=== PATIENT | female | born 1940 | race Asian ===

== ENCOUNTER 2019-04-26 16:05 | Emergency (ER) | payer MEDICAID ==
[~2019-04-26] VITALS: Ht 162.6 cm; Wt 63.6 kg
[~2019-04-26 16:05] MED LIST: CALC1TAB15 PO; CHOL100018 PO; FERR-89 PO; LISI1TAB11 PO; MULT-1203 PO
[2019-04-26] MEDS ORDERED: ASPI81TA39 PO (16:48)
[2019-04-26 17:39] LABS: GLUCOSE,POINT OF CARE 148 MG/DL (70-110)
[2019-04-26 19:01] VITALS: BP 129/64
== END 2019-04-26 19:25 | disposition home or self-care (01) ==
LOC: EMS 16:06
DX: R53.83 Other fatigue (principal); R55 Syncope and collapse; I10 Essential (primary) hypertension; Z79.82 Long term (current) use of aspirin
CPT/HCPCS: 82948; 93005

== ENCOUNTER 2022-04-07 10:17 | Emergency (ER) | payer MEDICARE, MEDICAID ==
[~2022-04-07] VITALS: Ht 144.8 cm; Wt 51.1 kg
[~2022-04-07 10:17] MED LIST changes: +ASPI81TA39 PO; -FERR-89 PO; +FERR325T27 PO
[2022-04-07] MEDS ORDERED: ATOR20TA86 PO (10:24)
[2022-04-07] MEDS ORDERED: METO25 PO (10:24)
[2022-04-07] MEDS ORDERED: ALEN70TA65 PO (10:24)
[2022-04-07 11:18] LABS: BASOPHILS % (AUTO) 0.4 % (0.0-2.0); EOSINOPHILS % (AUTO) 0.1 % (1.0-6.0); HEMATOCRIT 45.4 % (36-46); HEMOGLOBIN 15.3 g/dL (12.0-16.0); LYMPHOCYTES # (AUTO) 1.1 K/uL (1.0-4.8); LYMPHOCYTES % (AUTO) 11.5 % (22.0-44.0); MEAN CORPUSCULAR HEMOGLOBIN 29.8 pg (26.0-34.0); MEAN CORPUSCULAR HGB CONC 33.7 G/dL (31.0-37.0); MEAN CORPUSCULAR VOLUME 88 fL (80-100); MONOCYTES # (AUTO) 0.7 K/uL (0.1-1.0); MONOCYTES % (AUTO) 7.4 % (2.0-9.0); NEUTROPHILS # (AUTO) 7.7 K/uL (1.8-7.7); NEUTROPHILS % (AUTO) 80.6 % (40.0-70.0); PLATELET COUNT (AUTO) 203 K/uL (150-450); RED BLOOD CELL COUNT(AUTO) 5.14 MIL/uL (4.00-5.20); RED CELL DISTRIBUTION WIDTH 12.1 % (11.5-14.5)
[2022-04-07 11:46] LABS: CALCIUM, TOTAL 9.6 mg/dL (8.8-10.5); CREATININE 1.09 mg/dL (0.60-1.30)
[2022-04-07 11:52] LABS: POTASSIUM 2.9 mmol/L (3.5-5.1)
[2022-04-07] MEDS ORDERED: IOHEXOL 350 MG/ML 100 ML VIAL ONE (12:00)
[2022-04-07] MEDS ORDERED: POTASSIUM CHLORIDE 20 MEQ ER TABLET PO ONE (12:00)
[2022-04-07 13:45] LABS: COVID AG,FIA SOURCE NASAL SWAB
[2022-04-07] MEDS ORDERED: METOPROLOL TARTRATE 5 MG/5 ML VIAL IVP ONE ×4 (14:15→15:30)
[2022-04-07] MEDS ORDERED: LABETALOL HCL 5 MG/ML 20 ML VIAL IVP ONE (15:45)
[2022-04-07] MEDS ORDERED: NiCARDipine HCL 25 MG in SODIUM CHLORIDE 0.9% 240 ML IV PRN (15:45)
[2022-04-07 18:02] VITALS: BP 141/80
== END 2022-04-07 18:15 | disposition short-term general hospital (02) ==
LOC: EMS 10:31
DX: I67.1 Cerebral aneurysm, nonruptured (principal); I10 Essential (primary) hypertension; H49.02 Third [oculomotor] nerve palsy, left eye; Z20.822 Contact with and (suspected) exposure to COVID-19
CPT/HCPCS: 99291; 96365; 70496; 96375; 87426; 80048; 85025; 36415; 93005; J3490 ×2; Q9967; J7050

== ENCOUNTER 2022-05-18 12:33 | Inpatient (IN) | payer MEDICARE, MEDICAID ==
[2022-05-18] VITALS (16 sets, daily range): BP systolic 86–120; BP diastolic 45–68
[~2022-05-18] VITALS: Ht 154.9 cm; Wt 57.9 kg
[~2022-05-18 12:33] MED LIST changes: +ALEN70TA65 PO; -ASPI81TA39 PO; +ATOR20TA86 PO; -FERR325T27 PO; +METO25 PO
[2022-05-18] MEDS ORDERED: 0.9% SODIUM CHLORIDE 10 ML SYRINGE IVP PRN ×2 (13:00→15:30)
[2022-05-18] MEDS ORDERED: SODIUM CHLORIDE 0.9% 1,500 ML IV ONE (13:15)
[2022-05-18 13:32] LABS: BASOPHILS % (AUTO) 0.2 % (0.0-2.0); EOSINOPHILS % (AUTO) 0 % (1.0-6.0); LYMPHOCYTES # (AUTO) 1.1 K/uL (1.0-4.8); LYMPHOCYTES % (AUTO) 7.3 % (22.0-44.0); MEAN CORPUSCULAR HEMOGLOBIN 30.3 pg (26.0-34.0); MEAN CORPUSCULAR HGB CONC 31.2 G/dL (31.0-37.0); MEAN CORPUSCULAR VOLUME 97 fL (80-100); MONOCYTES # (AUTO) 0.5 K/uL (0.1-1.0); MONOCYTES % (AUTO) 3.5 % (2.0-9.0); PLATELET COUNT (AUTO) 245 K/uL (150-450); RED BLOOD CELL COUNT(AUTO) 1.59 MIL/uL (4.00-5.20); RED CELL DISTRIBUTION WIDTH 16.3 % (11.5-14.5)
[2022-05-18 13:39] LABS: ANION GAP 11 mmol/L (8-16); CALCIUM, TOTAL 9.2 mg/dL (8.8-10.5); CARBON DIOXIDE 25 mmol/L (22-29); CHLORIDE 104 mmol/L (98-107); CREATININE 2.08 mg/dL (0.60-1.30); GLOMERULAR FILTR. RATE CALC 23 mL/min (>60); GLUCOSE,RANDOM 137 mg/dL (70-110); POTASSIUM 4.5 mmol/L (3.5-5.1); SODIUM SERUM 140 mmol/L (136-145); UREA NITROGEN, BLOOD 45 mg/dL (7-18)
[2022-05-18 13:40] LABS: HEMOGLOBIN 4.8 g/dL (12.0-16.0)
[2022-05-18 13:41] LABS: HEMATOCRIT 15.5 % (36-46)
[2022-05-18 13:45] LABS: ALANINE AMINOTRANSFERASE 13 U/L (12-78); ALBUMIN 1.7 g/dL (3.4-5.0); ALKALINE PHOSPHATASE 62 U/L (46-116); ASPARTATE AMINOTRANSFERASE 18 U/L (15-37); BILIRUBIN,TOTAL 0.2 mg/dL (0.1-1.0); CREATINE KINASE, TOTAL ONLY 20 U/L (26-192); TOTAL PROTEIN, SERUM 4.9 g/dL (6.4-8.2)
[2022-05-18] MEDS ORDERED: ASPI-989 PO (13:54)
[2022-05-18] MEDS ORDERED: CLOP75TA60 PO (13:54)
[2022-05-18 13:57] LABS: B-TYPE NATRIURETIC PEPTIDE 72 pg/mL (0-100)
[2022-05-18 13:59] LABS: D-DIMER 7.86 mg/L FEU (0.00-0.50); INR 1.1 (0.9-1.1); PROTHROMBIN TIME 11.3 SEC (9.4-11.6)
[2022-05-18 14:36] LABS: COVID AG,FIA SOURCE NASAL SWAB
[2022-05-18] MEDS ORDERED: AZITHROMYCIN 500 MG/NS 250 ML IV ONE (14:45)
[2022-05-18] MEDS ORDERED: CefTRIAXone 1 GM/DEXTROSE 50 ML IV ONE (14:45)
[2022-05-18] MEDS ORDERED: PANTOPRAZOLE SODIUM 40 MG/VIAL IVP ONE (15:15)
[2022-05-18] MEDS: SODIUM CHLORIDE 0.9% 1,000 ML IV SCH (15:15)
[2022-05-18 15:25] LABS: INFLUENZA TYPE A NEGATIVE FOR TYPE A (NEGATIVE); INFLUENZA TYPE B NEGATIVE FOR TYPE B (NEGATIVE)
[2022-05-18] MEDS ORDERED: IPRATROPIUM BROMIDE 0.5 MG/2.5 ML NEB SOLUTION NEB PRN (15:30)
[2022-05-18] MEDS ORDERED: ALBUTEROL SULFATE 2.5 MG/0.5 ML NEB SOLUTION NEB PRN (15:30)
[2022-05-18] MEDS ORDERED: ONDANSETRON HCL 4 MG/2 ML VIAL IVP PRN (15:30)
[2022-05-18] MEDS ORDERED: PANTOPRAZOLE SODIUM 80 MG in SODIUM CHLORIDE 0.9% 100 ML IV SCH (15:30)
[2022-05-18] MEDS ORDERED: ACETAMINOPHEN 325 MG TABLET PO PRN (15:30)
[2022-05-18] MEDS: DOXYCYCLINE HYCLATE 100 MG in DEXTROSE 5%-WATER 100 ML IV SCH (18:15)
[2022-05-18] MEDS ORDERED: ALEN70TA65 PO (18:19)
[2022-05-18 18:20] LABS: APPEARANCE,URINE CLEAR (CLEAR); BILIRUBIN,URINE NEGATIVE (NEGATIVE); GLUCOSE, URINE (UA) NEGATIVE (NEGATIVE); KETONES,URINE TRACE mg/dL (NEGATIVE); LEUKOCYTE ESTERASE ,URINE NEGATIVE (NEGATIVE); NITRATE,URINE POSITIVE (NEGATIVE); OCCULT BLOOD,URINE NEGATIVE (NEGATIVE); PROTEIN,URINE NEGATIVE (NEGATIVE); SPECIFIC GRAVITIY, URINE 1.014 (1.003-1.030); UROBILINOGEN,URINE <=1.0 mg/dL (<=1.0)
[2022-05-18 18:37] LABS: BACTERIA,URINE Few /HPF (None Seen); RBC,URINE None Seen /HPF (0-2); SQUAMOUS EPITHELIAL CELL,UR Few /LPF (None Seen)
[2022-05-18 19:26] LABS: HEMATOCRIT 17.6 % (36-46); HEMOGLOBIN 5.5 g/dL (12.0-16.0)
[2022-05-18] MEDS: ATORVASTATIN CALCIUM 20 MG TABLET PO SCH (21:19)
[2022-05-19 00:05] VITALS: BP 102/58
[2022-05-19 00:35] VITALS: BP 120/58
[2022-05-19 01:05] VITALS: BP 125/70
[2022-05-19 01:08] LABS: HEMATOCRIT 24.2 % (36-46)
[2022-05-19] MEDS: DOXYCYCLINE HYCLATE 100 MG in DEXTROSE 5%-WATER 100 ML IV SCH ×2 (05:33→20:33)
[2022-05-19] MEDS: PANTOPRAZOLE SODIUM 80 MG in SODIUM CHLORIDE 0.9% 100 ML IV SCH (05:47)
[2022-05-19 07:01] LABS: BASOPHILS % (AUTO) 0.4 % (0.0-2.0); EOSINOPHILS % (AUTO) 1.1 % (1.0-6.0); HEMATOCRIT 25.5 % (36-46); HEMOGLOBIN 8.6 g/dL (12.0-16.0); LYMPHOCYTES # (AUTO) 2.1 K/uL (1.0-4.8); LYMPHOCYTES % (AUTO) 16.7 % (22.0-44.0); MEAN CORPUSCULAR HEMOGLOBIN 29.9 pg (26.0-34.0); MEAN CORPUSCULAR HGB CONC 33.6 G/dL (31.0-37.0); MEAN CORPUSCULAR VOLUME 89 fL (80-100); MONOCYTES # (AUTO) 0.7 K/uL (0.1-1.0); MONOCYTES % (AUTO) 5.5 % (2.0-9.0); NEUTROPHILS # (AUTO) 9.7 K/uL (1.8-7.7); NEUTROPHILS % (AUTO) 76.3 % (40.0-70.0); PLATELET COUNT (AUTO) 182 K/uL (150-450); RED BLOOD CELL COUNT(AUTO) 2.86 MIL/uL (4.00-5.20); RED CELL DISTRIBUTION WIDTH 15.5 % (11.5-14.5)
[2022-05-19] MEDS: MetroNIDAZOLE 500 MG/NACL 100 ML IV SCH ×3 (07:21→22:00)
[2022-05-19 07:22] LABS: ALBUMIN 1.6 g/dL (3.4-5.0); BILIRUBIN,TOTAL 0.6 mg/dL (0.1-1.0); CALCIUM, TOTAL 8.3 mg/dL (8.8-10.5); CREATININE 1.6 mg/dL (0.60-1.30); POTASSIUM 3.6 mmol/L (3.5-5.1); TOTAL PROTEIN, SERUM 4.8 g/dL (6.4-8.2)
[2022-05-19] MEDS: SODIUM CHLORIDE 0.9% 1,000 ML IV SCH ×2 (08:22→22:18)
[2022-05-19] MEDS: MULTIVITAMINS, THERAPEUTIC TABLET PO SCH (09:00)
[2022-05-19] MEDS: CHOLECALCIFEROL (VIT D3) 1,000 UNITS [25 MCG] TABLET PO SCH (09:00)
[2022-05-19] MEDS ORDERED: CALC-462 PO (11:00)
[2022-05-19] MEDS ORDERED: LISI20TA24 PO (11:00)
[2022-05-19] MEDS ORDERED: CHOL25TA4 PO (11:00)
[2022-05-19 11:05] VITALS: BP 137/66
[2022-05-19 11:38] LABS: HEMATOCRIT 29.2 % (36-46); HEMOGLOBIN 9.7 g/dL (12.0-16.0)
[2022-05-19] MEDS ORDERED: PROPOFOL 1% 20 ML VIAL IVP ONE (12:50)
[2022-05-19] MEDS ORDERED: LIDOCAINE/PF 2% 5 ML VIAL IM ONE (12:50)
[2022-05-19 13:39] LABS: HEMATOCRIT 27.5 % (36-46); HEMOGLOBIN 8.8 g/dL (12.0-16.0)
[2022-05-19 15:53] VITALS: BP 129/63
[2022-05-19] MEDS ORDERED: SODIUM CHLORIDE 0.9% 250 ML IV ONE (16:11)
[2022-05-19] MEDS: CefTRIAXone 1 GM/DEXTROSE 50 ML IV SCH (18:35)
[2022-05-19 18:44] LABS: BASOPHILS % (AUTO) 0.6 % (0.0-2.0); EOSINOPHILS % (AUTO) 1.9 % (1.0-6.0); HEMATOCRIT 30.2 % (36-46); HEMOGLOBIN 9.7 g/dL (12.0-16.0); LYMPHOCYTES # (AUTO) 1.8 K/uL (1.0-4.8); LYMPHOCYTES % (AUTO) 15.1 % (22.0-44.0); MEAN CORPUSCULAR HEMOGLOBIN 29.4 pg (26.0-34.0); MEAN CORPUSCULAR HGB CONC 32.2 G/dL (31.0-37.0); MEAN CORPUSCULAR VOLUME 92 fL (80-100); MONOCYTES # (AUTO) 0.5 K/uL (0.1-1.0); MONOCYTES % (AUTO) 4.4 % (2.0-9.0); NEUTROPHILS # (AUTO) 9.5 K/uL (1.8-7.7); PLATELET COUNT (AUTO) 191 K/uL (150-450); RED CELL DISTRIBUTION WIDTH 15.8 % (11.5-14.5)
[2022-05-19 20:22] VITALS: BP 137/67
[2022-05-19] MEDS: ATORVASTATIN CALCIUM 20 MG TABLET PO SCH (20:33)
[2022-05-20] VITALS (7 sets, daily range): BP systolic 116–138; BP diastolic 58–68
[2022-05-20] MEDS: PANTOPRAZOLE SODIUM 80 MG in SODIUM CHLORIDE 0.9% 100 ML IV SCH (01:00)
[2022-05-20 02:45] LABS: HEMATOCRIT 27.3 % (36-46); HEMOGLOBIN 9.1 g/dL (12.0-16.0)
[2022-05-20] MEDS ORDERED: ALENDRONATE SODIUM 70 MG TABLET PO SCH (06:30)
[2022-05-20] MEDS: MetroNIDAZOLE 500 MG/NACL 100 ML IV SCH ×2 (08:40→16:08)
[2022-05-20] MEDS: DOXYCYCLINE HYCLATE 100 MG in DEXTROSE 5%-WATER 100 ML IV SCH ×2 (08:41→20:08)
[2022-05-20] MEDS: CHOLECALCIFEROL (VIT D3) 1,000 UNITS [25 MCG] TABLET PO SCH (08:41)
[2022-05-20] MEDS: MULTIVITAMINS, THERAPEUTIC TABLET PO SCH (08:41)
[2022-05-20 09:10] LABS: HEMATOCRIT 26.6 % (36-46); HEMOGLOBIN 8.8 g/dL (12.0-16.0)
[2022-05-20] MEDS: PANTOPRAZOLE SODIUM 40 MG DR TABLET PO SCH ×2 (09:16→20:08)
[2022-05-20] MEDS: SODIUM CHLORIDE 0.9% 1,000 ML IV SCH (12:36)
[2022-05-20 13:24] LABS: HEMATOCRIT 28.4 % (36-46); HEMOGLOBIN 9.4 g/dL (12.0-16.0)
[2022-05-20] MEDS: CefTRIAXone 1 GM/DEXTROSE 50 ML IV SCH (15:37)
[2022-05-20 16:08] LABS: HEMATOCRIT 26.4 % (36-46); HEMOGLOBIN 8.8 g/dL (12.0-16.0)
[2022-05-20 19:05] LABS: HEMATOCRIT 27.7 % (36-46); HEMOGLOBIN 9.2 g/dL (12.0-16.0)
[2022-05-20] MEDS: ATORVASTATIN CALCIUM 20 MG TABLET PO SCH (20:08)
[2022-05-20 23:23] LABS: HEMATOCRIT 25.7 % (36-46); HEMOGLOBIN 8.5 g/dL (12.0-16.0)
[2022-05-21] MEDS: MetroNIDAZOLE 500 MG/NACL 100 ML IV SCH ×4 (01:04→23:54)
[2022-05-21 01:33] VITALS: BP 132/66
[2022-05-21] MEDS: SODIUM CHLORIDE 0.9% 1,000 ML IV SCH ×2 (04:18→18:11)
[2022-05-21 05:14] VITALS: BP 137/64
[2022-05-21 07:07] LABS: BASOPHILS % (AUTO) 0.4 % (0.0-2.0); EOSINOPHILS % (AUTO) 4.5 % (1.0-6.0); HEMATOCRIT 24.1 % (36-46); HEMOGLOBIN 8.2 g/dL (12.0-16.0); LYMPHOCYTES # (AUTO) 1.5 K/uL (1.0-4.8); LYMPHOCYTES % (AUTO) 16.3 % (22.0-44.0); MEAN CORPUSCULAR HEMOGLOBIN 30.6 pg (26.0-34.0); MEAN CORPUSCULAR HGB CONC 34.3 G/dL (31.0-37.0); MEAN CORPUSCULAR VOLUME 89 fL (80-100); MONOCYTES # (AUTO) 0.6 K/uL (0.1-1.0); MONOCYTES % (AUTO) 6.1 % (2.0-9.0); NEUTROPHILS # (AUTO) 6.7 K/uL (1.8-7.7); NEUTROPHILS % (AUTO) 72.7 % (40.0-70.0); PLATELET COUNT (AUTO) 173 K/uL (150-450); RED CELL DISTRIBUTION WIDTH 15.7 % (11.5-14.5)
[2022-05-21 07:11] LABS: CALCIUM, TOTAL 7.2 mg/dL (8.8-10.5); CREATININE 1.25 mg/dL (0.60-1.30); POTASSIUM 3.1 mmol/L (3.5-5.1)
[2022-05-21 07:17] VITALS: BP 130/61
[2022-05-21] MEDS: MULTIVITAMINS, THERAPEUTIC TABLET PO SCH (09:07)
[2022-05-21] MEDS: DOXYCYCLINE HYCLATE 100 MG in DEXTROSE 5%-WATER 100 ML IV SCH ×2 (09:08→21:25)
[2022-05-21] MEDS: CHOLECALCIFEROL (VIT D3) 1,000 UNITS [25 MCG] TABLET PO SCH (09:08)
[2022-05-21] MEDS: PANTOPRAZOLE SODIUM 40 MG DR TABLET PO SCH ×2 (09:08→21:24)
[2022-05-21 11:22] VITALS: BP 117/62
[2022-05-21 15:33] VITALS: BP 121/66
[2022-05-21] MEDS: CefTRIAXone 1 GM/DEXTROSE 50 ML IV SCH (15:51)
[2022-05-21] MEDS ORDERED: POTASSIUM CHLORIDE 20 MEQ ER TABLET PO ONE (19:45)
[2022-05-21 19:51] VITALS: BP 142/72
[2022-05-21] MEDS: ATORVASTATIN CALCIUM 20 MG TABLET PO SCH (21:24)
[2022-05-22 00:24] VITALS: BP 122/65
[2022-05-22 04:59] VITALS: BP 139/73
[2022-05-22] MEDS: SODIUM CHLORIDE 0.9% 1,000 ML IV SCH ×2 (06:31→21:04)
[2022-05-22 07:23] LABS: BASOPHILS % (AUTO) 0.3 % (0.0-2.0); EOSINOPHILS % (AUTO) 3.9 % (1.0-6.0); HEMOGLOBIN 8.9 g/dL (12.0-16.0); LYMPHOCYTES # (AUTO) 1.5 K/uL (1.0-4.8); LYMPHOCYTES % (AUTO) 14.6 % (22.0-44.0); MEAN CORPUSCULAR HEMOGLOBIN 30.8 pg (26.0-34.0); MEAN CORPUSCULAR HGB CONC 34.3 G/dL (31.0-37.0); MEAN CORPUSCULAR VOLUME 90 fL (80-100); MONOCYTES # (AUTO) 0.8 K/uL (0.1-1.0); MONOCYTES % (AUTO) 7.9 % (2.0-9.0); NEUTROPHILS # (AUTO) 7.4 K/uL (1.8-7.7); NEUTROPHILS % (AUTO) 73.3 % (40.0-70.0); PLATELET COUNT (AUTO) 172 K/uL (150-450); RED CELL DISTRIBUTION WIDTH 16.4 % (11.5-14.5)
[2022-05-22 07:39] LABS: ALBUMIN 1.5 g/dL (3.4-5.0); BILIRUBIN,TOTAL 0.4 mg/dL (0.1-1.0); CALCIUM, TOTAL 6.9 mg/dL (8.8-10.5); CREATININE 1.14 mg/dL (0.60-1.30); POTASSIUM 3.3 mmol/L (3.5-5.1); TOTAL PROTEIN, SERUM 4.3 g/dL (6.4-8.2)
[2022-05-22 07:49] VITALS: BP 116/59
[2022-05-22] MEDS: MetroNIDAZOLE 500 MG/NACL 100 ML IV SCH ×3 (08:25→23:49)
[2022-05-22] MEDS: CHOLECALCIFEROL (VIT D3) 1,000 UNITS [25 MCG] TABLET PO SCH (08:26)
[2022-05-22] MEDS: DOXYCYCLINE HYCLATE 100 MG in DEXTROSE 5%-WATER 100 ML IV SCH ×2 (08:26→19:54)
[2022-05-22] MEDS: MULTIVITAMINS, THERAPEUTIC TABLET PO SCH (08:26)
[2022-05-22] MEDS: PANTOPRAZOLE SODIUM 40 MG DR TABLET PO SCH ×2 (08:26→20:03)
[2022-05-22 11:30] VITALS: BP 152/67
[2022-05-22 15:14] VITALS: BP 105/59
[2022-05-22] MEDS: CefTRIAXone 1 GM/DEXTROSE 50 ML IV SCH (15:20)
[2022-05-22] MEDS: ATORVASTATIN CALCIUM 20 MG TABLET PO SCH (20:03)
[2022-05-22 20:07] VITALS: BP 131/67
[2022-05-23 00:22] VITALS: BP 123/67
[2022-05-23 04:33] VITALS: BP 119/65
[2022-05-23 07:35] VITALS: BP 137/75
[2022-05-23] MEDS: DOXYCYCLINE HYCLATE 100 MG in DEXTROSE 5%-WATER 100 ML IV SCH (08:32)
[2022-05-23] MEDS: CHOLECALCIFEROL (VIT D3) 1,000 UNITS [25 MCG] TABLET PO SCH (08:33)
[2022-05-23] MEDS: MULTIVITAMINS, THERAPEUTIC TABLET PO SCH (08:34)
[2022-05-23] MEDS: PANTOPRAZOLE SODIUM 40 MG DR TABLET PO SCH (08:34)
[2022-05-23] MEDS: MetroNIDAZOLE 500 MG/NACL 100 ML IV SCH (08:35)
[2022-05-23] MEDS ORDERED: PANT-31 PO (10:14)
[2022-05-23] MEDS ORDERED: METR500 PO (10:14)
[2022-05-23 11:33] VITALS: BP 124/71
[2022-05-23] MEDS: SODIUM CHLORIDE 0.9% 1,000 ML IV SCH (12:06)
[2022-05-23] MEDS ORDERED: DOXY-354 PO (12:45)
[2022-05-23] MEDS: CefTRIAXone 1 GM/DEXTROSE 50 ML IV SCH (15:00)
== END 2022-05-23 15:20 | disposition home health service (06) | DRG 871 ==
LOC: EMS 12:42 → ICUN 16:19 → 5S 05-19 11:19
PROVIDERS: ADMIT Internal Medicine; ATTEND Internal Medicine
PROC: 30233N1 Transfusion of Nonautologous Red Blood Cells into Peripheral Vein, Percutaneous Approach (ICD-10-PCS; 2022-05-18)
PROC: 0DB78ZX Excision of Stomach, Pylorus, Via Natural or Artificial Opening Endoscopic, Diagnostic (ICD-10-PCS; principal; 2022-05-19 14:30)
DX: A41.9 Sepsis, unspecified organism (principal); J18.9 Pneumonia, unspecified organism; K25.4 Chronic or unspecified gastric ulcer with hemorrhage; D62 Acute posthemorrhagic anemia; N39.0 Urinary tract infection, site not specified; E87.21 Acute metabolic acidosis; I10 Essential (primary) hypertension; Z20.822 Contact with and (suspected) exposure to COVID-19; I72.0 Aneurysm of carotid artery; I95.9 Hypotension, unspecified; K86.89 Other specified diseases of pancreas; M81.0 Age-related osteoporosis without current pathological fracture; Z79.899 Other long term (current) drug therapy; Z79.83 Long term (current) use of bisphosphonates; K29.70 Gastritis, unspecified, without bleeding
CPT/HCPCS: 70450; 71045; 74176; 80048; 80053; 81001; 82271; 82550; 83605; 83880; 84145; 84484; 85014; 85018; 85025; 85379; 85610; 85730; 86850; 86900; 86901; 86923; 87040; 87804; 93005; 93306; 93880; 97116; 97162; 97530; 99291; C9113; G0378; J0456; J0696; J2405; J2704; J3490; J7030; J7050; J7060; P9016; 36415-L1; 36415-TC

== ENCOUNTER 2023-02-08 18:45 | Emergency (ER) | payer OTHER ==
[~2023-02-08] VITALS: Ht 149.9 cm; Wt 47.7 kg
[~2023-02-08 18:45] MED LIST changes: +ATOR20TA PO; -ATOR20TA86 PO; +CALC-462 PO; -CALC1TAB15 PO; -CHOL100018 PO; +CHOL25TA4 PO; +DOXY-354 PO; -LISI1TAB11 PO; -METO25 PO; +METR500 PO; -MULT-1203 PO; +PANT-31 PO
[2023-02-08] MEDS ORDERED: METO25 PO (18:50)
[2023-02-08] MEDS ORDERED: FERR325T23 PO (18:50)
[2023-02-08] MEDS ORDERED: ROSU5TAB PO (18:50)
[2023-02-08] MEDS ORDERED: CALC-1271 PO (18:50)
[2023-02-08] MEDS ORDERED: ASPI-1444 PO (18:50)
[2023-02-08] MEDS ORDERED: PANT40TA54 PO (18:50)
[2023-02-08] MEDS ORDERED: LISI20TA24 PO (18:50)
[2023-02-08 18:56] VITALS: TEMP 97.9
[2023-02-08] MEDS ORDERED: ONDANSETRON HCL 4 MG/2 ML VIAL IVP ONE (19:15)
[2023-02-08] MEDS ORDERED: LABETALOL HCL 5 MG/ML 20 ML VIAL IVP ONE (19:15)
[2023-02-08 19:24] LABS: BASOPHILS % (AUTO) 0.3 % (0.0-2.0); EOSINOPHILS % (AUTO) 0.1 % (1.0-6.0); HEMATOCRIT 38.1 % (36-46); HEMOGLOBIN 12.6 g/dL (12.0-16.0); LYMPHOCYTES # (AUTO) 1.2 K/uL (1.0-4.8); LYMPHOCYTES % (AUTO) 19.1 % (22.0-44.0); MEAN CORPUSCULAR HEMOGLOBIN 30.5 pg (26.0-34.0); MEAN CORPUSCULAR HGB CONC 32.9 G/dL (31.0-37.0); MEAN CORPUSCULAR VOLUME 93 fL (80-100); MONOCYTES # (AUTO) 0.2 K/uL (0.1-1.0); MONOCYTES % (AUTO) 3.4 % (2.0-9.0); NEUTROPHILS % (AUTO) 77.1 % (40.0-70.0); PLATELET COUNT (AUTO) 177 K/uL (150-450); RED BLOOD CELL COUNT(AUTO) 4.12 MIL/uL (4.00-5.20); RED CELL DISTRIBUTION WIDTH 12.5 % (11.5-14.5); WHITE BLOOD COUNT (AUTO) 6.5 K/uL (4.5-11.0)
[2023-02-08 19:28] LABS: CALCIUM, TOTAL 9.7 mg/dL (8.8-10.5); CREATININE 1.21 mg/dL (0.60-1.30); POTASSIUM 3.9 mmol/L (3.5-5.1)
[2023-02-08 19:30] LABS: PROTHROMBIN TIME 10.3 SEC (9.4-11.6)
[2023-02-08 19:35] LABS: ALBUMIN 3.8 g/dL (3.4-5.0); BILIRUBIN,TOTAL 0.4 mg/dL (0.1-1.0); TOTAL PROTEIN, SERUM 7.8 g/dL (6.4-8.2)
[2023-02-08 19:36] LABS: TROPONIN I-HIGH SENSITIVITY 6 ng/L (<51)
[2023-02-08 21:45] VITALS: BP 152/78; PULSE 82; RESP 16
== END 2023-02-08 22:12 | disposition home or self-care (01) ==
LOC: EMS 18:45
DX: I10 Essential (primary) hypertension (principal); R42 Dizziness and giddiness; E78.00 Pure hypercholesterolemia, unspecified
CPT/HCPCS: 70450; 71045; 80053; 82550; 83880; 84484; 85025; 85610; 85730; 93005; 96374; 96375; 99285; J2405; J3490; 36415-L1; 36415-TC